=== PATIENT | male | born 1995 | race African-American/Black ===

== ENCOUNTER 2020-02-12 08:01 | Emergency (ER) | payer OTHER ==
--- NOTE | 2020-02-12 10:26 | RAD ---
PA AND LATERAL VIEWS CHEST: Date: 02/12/2020 HISTORY: Mid sternal pain and shortness of breath. COMPARISON: 06/14/2014. FINDINGS: The cardiomediastinum is normal. The lungs are well expanded and clear. The bony thorax is normal. IMPRESSION: Normal exam. POS: [id number]
== END 2020-02-12 10:53 | disposition home or self-care (01) ==
LOC: ERS 08:01
DX: R07.89 Other chest pain (principal); J45.909 Unspecified asthma, uncomplicated
CPT/HCPCS: 71046